=== PATIENT | female | born 1965 | race Native Hawaiian/Other Pacific Islander ===

== ENCOUNTER → 2017-06-27 | Outpatient (CLI) | payer BC | LOC: FIMAGING 10:46 | PROVIDERS: ATTEND Internal Medicine | DX: K80.20 Calculus of gallbladder without cholecystitis without obstruction (principal) ==

== ENCOUNTER 2018-03-21 01:35 | Emergency (ER) | payer OTHER ==
[2018-03-21] MEDS ORDERED: NS 1,000 ML IV ONE (01:41)
--- NOTE | 2018-03-21 01:42 | EDPHY ---
H & P Time Seen by Provider: 03/21/18 01:41 HPI/ROS: HPI CHIEF COMPLAINT: Vaginal bleeding HISTORY OF PRESENT ILLNESS: 52-year-old female, states she has a history of uterine fibroids, she has been bleeding continuously for 11 days. She states that she has been using approximately a pad every 2 hr. 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 She states she tried to get into her OBGYN but is not scheduled to May 09. She did see her primary care doctor schedule her for a pelvic ultrasound. She decided to come to the emergency room tonight due to vaginal bleeding. Patient does complain of some lightheadedness, denies chest pain or shortness of breath, denies syncope. She is concerned that her appointment is not toe May 09. Patient's OBGYN is Dr. Worley/ Dr. Hinton Past Medical History: Uterine fibroids Past Surgical History: Appendectomy Social History: Denies drugs alcohol, she does use tobacco occasionally. Family History: Noncontributory ROS REVIEW OF SYSTEMS: 10 Systems were reviewed and negative with the exception of the elements mentioned in the history of present illness. Exam Constitutional nontoxic no acute distress, appears well triage nursing summary reviewed, vital signs reviewed, awake/alert. Vital signs stable. Eyes normal conjunctivae and sclera, EOMI, PERRLA. HENT conjunctiva is not pale, normal inspection, atraumatic, moist mucus membranes, no epistaxis, neck supple/ no meningismus, no raccoon eyes. Respiratory clear to auscultation bilaterally, normal breath sounds, no respiratory distress, no wheezing. Cardiovascular rate normal, regular rhythm, no murmur, no edema, distal pulses normal. Gastrointestinal soft, non-tender, no rebound, no guarding, normal bowel sounds, no distension, no pulsatile mass. Genitourinary no CVA tenderness. Musculoskeletal no midline vertebral tenderness, full range of motion, no calf swelling, no tenderness of extremities, no meningismus, good pulses, neurovascularly intact. Skin pink, warm, & dry, no rash, skin atraumatic. Neurologic awake, alert and oriented x 3, AAOx3, moves all 4 extremities equally, motor intact, sensory intact, CN II-XII intact, normal cerebellar, normal vision, normal speech. Psychiatric normal mood/affect. Heme/Lymph/Immune no lymphadenopathy. Differential Diagnosis: But is not limited to in a particular order dysfunctional uterine bleeding, uterine fibroid bleeding, , ectopic , blood loss anemia Medical Decision Making: Plan for this patient IV establishment with blood draw , type and screen, pelvic ultrasound complete, gentle IV fluids, and re- evaluate. Re-evaluation: Serum hemoglobin 10 Hematocrit 29 HCG negative. 3:02 a.m. Ultrasound results pending. The ultrasound report faxed to me 3:11 a.m. Faxed to me by direct Radiology, this shows thickened endometrium with multiple fibroids questionable endometrial echogenicity is seen possibly representing a polyp or blood clot. Good blood flow to both ovaries. No adnexal masses. 0334: Discussed the case in detail with Dr. Wilkerson. Plan will be for close follow-up. Dr. Wilkerson to talk to the OBGYN office to get her in sooner than May 09. Dr. Wilkerson would like her on a control taper. Will discuss with patient about control options. I went over all the patient's blood work with her as well as ultrasound findings. She agrees for discharge and follow up with OBGYN closely. She also understands return precautions, she should return to the emergency room if she has worsening vaginal bleeding, not doing well, questions or concerns. She should call Dr. Wilkerson's office today. 0500: Patient eager for discharge from the emergency room. She has not had any significant bleeding here in the ER. Her workup for vaginal bleeding shows dysfunctional uterine bleeding most likely due to fibroids. 0501: After long discussion with the patient and discussing control options the patient states that she "Cannot assure me that she will not stop smoking while taking control". This puts her at great risk for PE/DVT. Since she cannot assure me that she will not stop smoking I have declined to prescribe her control. If she changes her mind about smoking I do recommend she follows up with OBGYN about control options. 5:00 a.m. I did discuss the case with Dr. Wilkerson again. Plan will be for close follow-up in the office. Dr. Wilkerson did send an e-mail to her schedule her to get this patient appointment. Patient is comfortable this plan comfortable discharge and comfortable return to the ER for there is any worsening symptoms questions or concerns. Source: Patient Constitutional: Initial Vital Signs Temperature (C) 36.6 C 03/21/18 01:42 Heart Rate 77 03/21/18 01:42 Respiratory Rate 16 03/21/18 01:42 Blood Pressure 171/82 H 03/21/18 01:42 O2 Sat (%) 96 03/21/18 01:42 O2 Delivery Mode Room Air Allergies/Adverse Reactions: No Known Allergies Allergy (Unverified 03/21/18 01:42) Home Medications: Medication Instructions Recorded NK [No Known Home Meds] 03/21/18 Medical Decision Making - Data Points Laboratory Results: Laboratory Results 03/21/18 01:55 03/21/18 01:55 03/21/18 03/21/18 03/21/18 02:50 01:55 01:55 WBC RBC Hgb Hct MCV MCH MCHC RDW Plt Count MPV Neut % (Auto) Lymph % (Auto) [place] % (Auto) Eos % (Auto) Baso % (Auto) Nucleat RBC Rel Count Absolute Neuts (auto) Absolute Lymphs (auto) Absolute Monos (auto) Absolute Eos (auto) Absolute Basos (auto) Absolute Nucleated RBC Immature Gran % Immature Gran # PT INR APTT Sodium Potassium Chloride Carbon Dioxide Anion Gap BUN Creatinine Estimated GFR Glucose Calcium Beta HCG, Qual NEGATIVE Urine Color RED Urine Appearance CLEAR Urine pH 6.0 (5.0-7.5) Ur Specific [place] 1.003 (1.002-1.030) Urine Protein 2+ H (NEGATIVE) Urine Ketones NEGATIVE (NEGATIVE) Urine Blood 3+ H (NEGATIVE) Urine Nitrate NEGATIVE (NEGATIVE) Urine Bilirubin NEGATIVE (NEGATIVE) Urine Urobilinogen NEGATIVE EU EU (0.2-1.0) Ur Leukocyte Esterase NEGATIVE (NEGATIVE) Urine RBC 50-182 /hpf H /hpf (0-3) Urine WBC 5-10 /hpf H /hpf (0-3) Ur Epithelial Cells TRACE /lpf /lpf (NONE-1+) Urine Bacteria 2+ /hpf H /hpf (NONE SEEN) Urine Glucose NEGATIVE (NEGATIVE) Patient ABO/Rh O POSITIVE Antibody Screen NEGATIVE 03/21/18 03/21/18 03/21/18 01:55 01:55 01:55 WBC 7.11 10^3/uL 10^3/uL (3.80-9.50) RBC 3.44 10^6/uL L 10^6/uL (4.18-5.33) Hgb 10.3 g/dL L g/dL (12.6-16.3) Hct 29.9 % L % (38.0-47.0) MCV 86.9 fL fL (81.5-99.8) MCH 29.9 pg pg (27.9-34.1) MCHC 34.4 g/dL g/dL (32.4-36.7) RDW 12.8 % % (11.5-15.2) Plt Count 280 10^3/uL 10^3/uL (150-400) MPV 10.8 fL fL (8.7-11.7) Neut % (Auto) 54.2 % % (39.3-74.2) Lymph % (Auto) 33.9 % % (15.0-45.0) Wil[place]ger % (Auto) 7.3 % % (4.5-13.0) Eos % (Auto) 3.2 % % (0.6-7.6) Baso % (Auto) 1.0 % % (0.3-1.7) Nucleat RBC Rel Count 0.0 % % (0.0-0.2) Absolute Neuts (auto) 3.85 10^3/uL 10^3/uL (1.70-6.50) Absolute Lymphs (auto) 2.41 10^3/uL 10^3/uL (1.00-3.00) Absolute Monos (auto) 0.52 10^3/uL 10^3/uL (0.30-0.80) Absolute Eos (auto) 0.23 10^3/uL 10^3/uL (0.03-0.40) Absolute Basos (auto) 0.07 10^3/uL 10^3/uL (0.02-0.10) Absolute Nucleated RBC 0.00 10^3/uL 10^3/uL (0-0.01) Immature Gran % 0.4 % % (0.0-1.1) Immature Gran # 0.03 10^3/uL 10^3/uL (0.00-0.10) PT 13.3 SEC SEC (12.0-15.0) INR 0.99 (0.83-1.16) APTT 28.1 SEC SEC (23.0-38.0) Sodium 137 mEq/L mEq/L (135-145) Potassium 4.0 mEq/L mEq/L (3.5-5.2) Chloride 109 mEq/L mEq/L (97-110) Carbon Dioxide 22 mEq/l mEq/l (22-31) Anion Gap 6 mEq/L mEq/L (6-14) BUN 11 mg/dL mg/dL (7-23) Creatinine 0.6 mg/dL mg/dL (0.6-1.0) Estimated GFR > 60 Glucose 101 mg/dL H mg/dL (70-100) Calcium 8.6 mg/dL mg/dL (8.5-10.4) Beta HCG, Qual Urine Color Urine Appearance Urine pH Ur Specific [place] Urine Protein Urine Ketones Urine Blood Urine Nitrate Urine Bilirubin Urine Urobilinogen Ur Leukocyte Esterase Urine RBC Urine WBC Ur Epithelial Cells Urine Bacteria Urine Glucose Patient ABO/Rh Antibody Screen Medications Given: Discontinued Medications Sodium Chloride (Ns) 1,000 mls @ 0 mls/hr IV EDNOW ONE; Wide Open PRN Reason: Protocol Stop: 03/21/18 01:42 Last Admin: 03/21/18 01:53 Dose: 1,000 mls Departure - Departure Disposition: Home, Routine, Self-Care Clinical Impression: Dysfunctional uterine bleeding Condition: Good Instructions: Dysfunctional Uterine Bleeding (ED) Additional Instructions: 1. Please call Dr. Wilkerson's Office in AM for appointment 2. Return to the emergency room if you have heavy vaginal bleeding, worsening symptoms, or not feeling well. Referrals: Le Hinton MD [Medical Doctor] - As per Instructions Yuki Worley DO [Doctor of Osteopathy] - As per Instructions Demarco Young MD [Primary Care Provider] - As per Instructions Dayana Wilkerson MD [Medical Doctor] - As per Instructions
[2018-03-21 02:19] LABS: INR 0.99 (0.83-1.16); PROTIME(PATIENT) 13.3 SEC (12.0-15.0)
[2018-03-21 02:26] LABS: PLATELET COUNT 280 10^3/uL (150-400)
[2018-03-21 05:19] VITALS: BP 134/80
== END 2018-03-21 05:13 | disposition home or self-care (01) ==
DX: N93.8 Other specified abnormal uterine and vaginal bleeding (principal); E86.9 Volume depletion, unspecified

== ENCOUNTER 2018-04-02 14:06 | Day surgery (SDC) | payer OTHER ==
--- NOTE | 2018-03-28 17:00 | GHP ---
[f rep st] PREOP HISTORY AND PHYSICAL PLANNED PROCEDURE: Hysteroscopy with morcellation of endometrial tissue. INDICATIONS: Patient is a 52-year-old, 3, para 3-0-0-3, who presented to me on 03/26/2018 with complaint of continuous bleeding for the last 2-1/2 weeks. The patient had seen us years ago for annual exams and she has been having annual Pap smears with another provider for the last couple years. She had been having monthly cycles until last year when she started having cycles every other month. Her cycles were alternating very heavy and then reasonable. Patient's last period was October 2017. She did not have any periods until March 07, when she began bleeding heavily. She has been bleeding ever since. She was seen in the emergency room which did a pelvic ultrasound which showed a uterus measuring 9.8 x 6.3 x 6.4 cm with an endometrial thickness of 22 mm with a possible endometrial polyp measuring 1.5 x 1.1 x 1.1 cm. Heterogeneous endometrial lining was noted. Multiple fibroids were noted, including a posterior fundal fibroid measuring 2.9 x 2.7 x 2.4 cm, an anterior mid-body intramural fibroid measuring 2 x 2 x 1 cm, and an lower uterine segment fibroid measuring 1.3 x 1.3 x 1.1 cm. Ovaries unremarkable. Management options were reviewed with the patient. We attempted to do an endometrial biopsy in the office which was negative. Because of the concerning nature of the thickened lining of the uterus and the difficult endometrial biopsy due to patient's anatomy, decision was made to proceed with a hysteroscopy with morcellation of endometrial tissue. We briefly discussed an endometrial ablation. However, we have discussed that we will proceed with this diagnostic procedure first and then follow up for additional management of irregular bleeding depending on pathology. The patient has been properly consented. PAST MEDICAL HISTORY: Significant for dysfunctional uterine bleeding, history of gallbladder issues. MEDICATIONS: Supplements. She is on iron and then a gallbladder and liver tincture. SURGICAL HISTORY: Appendectomy in January 2017. ALLERGIES: No known drug allergies. 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 She does smoke occasionally. She denies alcohol or drug use. FAMILY MEDICAL HISTORY: Significant for multiple family members with menstrual issues, perimenopausally. RISK INTERN HISTORY: Menarche age 15. Periods have been irregular in the last year. She is a 3, para 3-0-0-3. She has had 3 spontaneous vaginal deliveries. The patient denies any history of any abnormal Pap smears or sexually transmitted diseases. REVIEW OF SYSTEMS: 10-point review of systems is negative with the exception of the above-mentioned pertinent positives. PHYSICAL EXAMINATION: VITAL SIGNS: Stable. GENERAL APPEARANCE: Alert and oriented x3. PSYCH: Appropriate affect. MUSCULOSKELETAL: Grossly intact. NEURO: Grossly intact. HEART: Regular, regular. LUNGS: Clear to auscultation bilaterally. ABDOMEN: Obese, soft, nondistended, nontender. EXTREMITIES: Reveal no calf tenderness or edema. PELVIC: Reveals a mobile retroverted uterus with no adnexal masses. Her cervix is up behind her pubic symphysis. Pelvic ultrasound is described above. ASSESSMENT AND PLAN: 52-year-old, 3, para 3-0-0-3, with dysfunctional uterine bleeding and a thickened endometrium. The biopsy in the office was benign, however, is thought to be inadequate sampling, so decision was made to proceed with a hysteroscopy with morcellation of endometrial tissue. The patient has been properly consented. /[id number]/MODL MTDD
[2018-04-02] MEDS ORDERED: SILVER NITRATE APPLICATOR 1 APPL TP ONE (14:38)
[2018-04-02] MEDS ORDERED: MIDAZOLAM 2 MG/2 ML VIAL ONE (15:15)
[2018-04-02] MEDS ORDERED: MIDAZOLAM 2 MG/2 ML VIAL IVP ONE (15:15)
--- NOTE | 2018-04-02 15:15 | PDANEPAE ---
ANE History of Present Illness hysteroscopy ANE Past Medical History - Pulmonary History Hx Oxygen in Use at Home: No Hx Sleep Apnea: No Sleep Apnea Screening Result - Last Documented: Negative - Endocrine History Hx Diabetes: No - GI History GERD: mild - Chronic Pain History Chronic Pain: No ANE Review of Systems Review of systems is: negative Review of Systems: - Exercise capacity Exercise capacity: >=4 METS ANE Patient History - Allergies Allergies/Adverse Reactions: No Known Allergies Allergy (Unverified 03/21/18 01:42) - Home Medications Home medications: home medication list seen and reviewed Home Medications: Motrin (*) 400 mg PRN 04/02/18 [Last Taken 1 Week Ago ~03/26/18] Unisom 04/02/18 [Last Taken 1 Day Ago ~04/01/18] - NPO status NPO Since - Liquids (Date): 04/02/18 NPO Since - Liquids (Time): 10:30 NPO Since - Solids (Date): 04/01/18 NPO Since - Solids (Time): 23:00 - Anes Hx Anes Hx: post operative nausea - Smoking Hx Smoking Status: Light smoker - Family Anes Hx Family Anes Hx: none ANE Labs/Vital Signs - Vital Signs Vital Signs: reviewed preoperatively; see RN documention for details Blood Pressure: 136/83 Heart Rate: 68 Respiratory Rate: 16 O2 Sat (%): 94 Height: 165.1 cm Weight: 86.183 kg ANE Physical Exam - Airway Neck exam: FROM Mallampati Score: Class 1 Mouth exam: normal dental/mouth exam - Pulmonary Pulmonary: no respiratory distress - Cardiovascular Cardiovascular: regular rate and rhythym - ASA Status ASA Status: II ANE Anesthesia Plan Anesthesia Plan: GA w LMA
[2018-04-02] MEDS ORDERED: fentaNYL 100 MCG/2 ML INJ ONE (15:17)
[2018-04-02] MEDS ORDERED: ONDANSETRON 4 MG/2 ML VIAL ONE (15:17)
[2018-04-02] MEDS ORDERED: PROPOFOL 200 MG/20 ML VIAL ONE (15:17)
[2018-04-02] MEDS ORDERED: LIDOCAINE 2% 100 MG/5 ML SYR ONE (15:17)
[2018-04-02] MEDS ORDERED: DEXAMETHASONE 4 MG/ML VIAL ONE (15:17)
--- NOTE | 2018-04-02 15:21 | PDHPUP ---
History & Physical Update H&P update statement: This history and physical update is based on an assessment of the patient which was completed after admission or registration (within 24 hours), but prior to the surgery/procedure. H&P update: H&P reviewed & patient examined, no change in patient's condition since H&P completed
[2018-04-02] MEDS ORDERED: ACETAMINOPHEN 500 MG TAB PO PRN (15:47)
[2018-04-02] MEDS ORDERED: HYDROmorphONE/DILAUDID 2 MG/ML INJ IVP PRN (15:47)
[2018-04-02] MEDS ORDERED: HYDROCODONE/APAP 5/325 TAB PO PRN (15:47)
[2018-04-02] MEDS ORDERED: PROMETHAZINE HCL 25 MG/ML INJ IVP PRN (15:47)
[2018-04-02] MEDS ORDERED: DEXAMETHASONE 4 MG/ML VIAL IVP PRN (15:47)
[2018-04-02] MEDS ORDERED: fentaNYL 100 MCG/2 ML INJ IVP PRN (15:47)
[2018-04-02] MEDS ORDERED: ONDANSETRON 4 MG/2 ML VIAL IVP PRN (15:47)
[2018-04-02] MEDS ORDERED: NALOXONE HCL 0.4 MG/ML INJ IVP PRN (15:47)
[2018-04-02] MEDS ORDERED: oxyCODONE IR 5 MG TAB PO PRN (15:47)
[2018-04-02] MEDS ORDERED: MEPERIDINE 25 MG/0.5 ML AMP IVP PRN (15:47)
--- NOTE | 2018-04-02 15:49 | POSTANESTH ---
Post Anesthetic Evaluation Cardiovascular Status: Normal, Stable, Similar to Pre-Op Cond Respiratory Status: Normal, Stable, Similar to Pre-op Cond. Level of Consciousness/Mental Status: Can Participate in Eval, Moderately Sleepy Pain Control: Adequate, Prn Tx Ordered Nausea/Vomiting Control: Adequate, Prn Tx Ordered Complications Possibly Related to Anesthesia: None Noted
[2018-04-02] MEDS ORDERED: KETOROLAC 30 MG/1 ML SDV ONE (15:54)
--- NOTE | 2018-04-02 16:48 | GOP ---
[f rep st] OPERATIVE REPORT DATE OF OPERATION: 04/02/2018 SURGEON: Yuki Worley DO ANESTHESIA: General with LMA. ANESTHESIOLOGIST: Dr. Delmar Sanchez PREOPERATIVE DIAGNOSIS: Dysfunctional uterine bleeding. POSTOPERATIVE DIAGNOSIS: Dysfunctional uterine bleeding. PROCEDURE PERFORMED: Hysteroscopy with morcellation of endometrial tissue. FINDINGS: In the exam under anesthesia, mobile, retroflexed uterus with no adnexal masses. Hysteroscopic findings: Diffusely thickened endometrium. SPECIMENS: Endometrial curettings. INDICATIONS: Patient is a 52-year-old, 3, para 3-0-0-3, who presented on 03/26/2018, with co mplaint of continuing bleeding for the last 2-1/2 weeks. The patient had been having regular cycles until a year ago, when she began having increasingly irregular cycles. She had not had a period sinc e October and then began bleeding in the beginning of February. She bled continuously for 2 weeks. Pelvic ultrasound was performed, which showed a 22 mm stripe with a possible fibroid or polyp. An e ndometrial biopsy was attempted in the office, which was only partially successful due to the patient 's extreme retroflexion, and because of the questionable polyp, decision was made to proceed with a h ysteroscopy with morcellation of endometrial tissue. Risks and benefits were extensively reviewed wi th the patient. The patient was properly consented. DESCRIPTION OF PROCEDURE: Patient was taken to the operating room with intravenous fluids in place. She was then placed on the operating room table in the dorsal supine position where general anesthes ia was obtained. She was then repositioned into the dorsal lithotomy position with the Yellofin stir rups and prepped and draped in normal sterile fashion. Exam under anesthesia revealed a mobile, retr overted uterus with no adnexal masses. A speculum was then placed in the patient's vagina. An Allis clamp was used to grasp the anterior lip of the cervix and the cervix was carefully dilated to allow for the introduction of an operative hysteroscope. The hysteroscope was then introduced with fluid medium running. Thickened endometrial tissue was noted. No obvious polyps or fibroids were noted. Bilateral tubal ostia were visualized. Circumferential morcellation was performed until a thin endom etrium was noted throughout the endometrial cavity. No masses were noted upon withdrawal of the hyst eroscope. Fluid deficit was minimal. After instruments were removed from the patient's vagina, the patient was returned to the dorsal supine position, where she was easily awoken from anesthesia. Spo nge count was correct. The patient was transported to recovery room in stable condition. /[id number]/MODL
[2018-04-02 17:59] VITALS: BP 136/70
== END 2018-04-02 17:44 | disposition home or self-care (01) ==
LOC: FSGY 14:06
PROVIDERS: ATTEND Obstetrics & Gynecology
PROC: 0UDB8ZX Extraction of Endometrium, Via Natural or Artificial Opening Endoscopic, Diagnostic (ICD-10-PCS; principal; 2018-04-02 15:30)
DX: N93.8 Other specified abnormal uterine and vaginal bleeding (principal); F17.200 Nicotine dependence, unspecified, uncomplicated
CPT/HCPCS: 58558; C1782; J1100; J1885; J2001; J2250; J2405; J2704; J3010